=== PATIENT | female | born 1990 ===

== ENCOUNTER 2017-08-26 13:41 | Emergency (ER) | payer SELFPAY ==
[2017-08-26 13:47] VITALS: BP 107/54
--- NOTE | 2017-08-26 14:28 | Emergency Department Report ---
ED ENT HPI - General Chief complaint: Earache Stated complaint: EAR ACHE Time Seen by Provider: 08/26/17 14:22 Source: patient Mode of arrival: Ambulatory Limitations: No Limitations - History of Present Illness MD complaint: ear pain -: Gradual, days(s) Location: R ear Quality: burning Consistency: intermittent Context- Ear: recent swimming Associated Symptoms: discharge from ear. denies: fever, cough, gum swelling, toothache, pain with swallowing, sore throat, tinnitus, hearing loss, rhinorrhea - Related Data Previous Rx's Medication Instructions Recorded Last Taken Type Ofloxacin 0.3% [Floxin] 5 ml OT QID 7 Days #1 bottle 08/26/17 Unknown Rx Allergies Allergy/AdvReac Type Severity Reaction Status Date / Time latex Allergy Hives Verified 08/26/17 13:45 sulfamethoxazole Allergy Hives Verified 08/26/17 13:45 [From Bactrim] trimethoprim [From Bactrim] Allergy Hives Verified 08/26/17 13:45 ED Dental HPI - General Chief complaint: Earache Stated complaint: EAR ACHE Time Seen by Provider: 08/26/17 14:22 Source: patient Mode of arrival: Ambulatory Limitations: No Limitations - Related Data Previous Rx's Medication Instructions Recorded Last Taken Type Ofloxacin 0.3% [Floxin] 5 ml OT QID 7 Days #1 bottle 08/26/17 Unknown Rx Allergies Allergy/AdvReac Type Severity Reaction Status Date / Time latex Allergy Hives Verified 08/26/17 13:45 sulfamethoxazole Allergy Hives Verified 08/26/17 13:45 [From Bactrim] trimethoprim [From Bactrim] Allergy Hives Verified 08/26/17 13:45 ED Review of Systems ROS: Stated complaint: EAR ACHE Other details as noted in HPI Comment: All other systems reviewed and negative Constitutional: denies: diaphoresis, fever, malaise Eyes: denies: eye discharge, vision change ENT: ear pain. denies: throat pain, dental pain, hearing loss, epistaxis Respiratory: denies: cough, orthopnea, shortness of breath, SOB with exertion, SOB at rest, stridor Cardiovascular: denies: chest pain, palpitations, dyspnea on exertion, orthopnea , edema, syncope Gastrointestinal: denies: abdominal pain, nausea, vomiting, diarrhea, constipation, hematemesis, melena, hematochezia Genitourinary: denies: urgency, dysuria, frequency, hematuria, discharge Neurological: denies: headache, weakness, numbness, paresthesias, confusion, abnormal gait, vertigo ED Past Medical Hx - Past Medical History Previous Medical History?: No - Surgical History Additional Surgical History: tib/fib repair - Social History Smoking Status: Current Some Day Smoker Substance Use Type: None - Medications Home Medications: Home Medications Medication Instructions Recorded Confirmed Last Taken Type Ofloxacin 0.3% [Floxin] 5 ml OT QID 7 Days #1 bottle 08/26/17 Unknown Rx ED Physical Exam - General Limitations: No Limitations General appearance: alert, in no apparent distress, other (nontoxic) - Head Head exam: Present: atraumatic, normocephalic - Eye Eye exam: Present: PERRL, EOMI - ENT ENT exam: Present: TM's normal bilaterally, other (no mastoid tenderness, TM negative bilaterally, discharge in the right ear with auricular tenderness to tugging, amount of cerumen buildup) - Neck Neck exam: Present: normal inspection. Absent: tenderness, meningismus - Respiratory Respiratory exam: Present: normal lung sounds bilaterally. Absent: respiratory distress, wheezes, rales, rhonchi, stridor ED Course Vital Signs 08/26/17 13:45 Temperature 98.6 F Pulse Rate 90 Respiratory 16 Rate Blood Pressure 107/54 O2 Sat by Pulse 100 Oximetry ED Medical Decision Making - Medical Decision Making Symptoms consistent with otitis externa patient will be placed on drops, no evidence of perforation, she is nontoxic with no hearing problems stable for outpatient follow-up no vertigo or tinnitus Critical care attestation.: If time is entered above; I have spent that time in minutes in the direct care of this critically ill patient, excluding procedure time. ED Disposition Clinical Impression: Otitis externa Disposition: DC-01 TO HOME OR SELFCARE Is pt being admited?: No Condition: Stable Instructions: Otitis Externa (ED) Additional Instructions: See the doctor listed return if new or alarming symptoms Prescriptions: Ofloxacin 0.3% [Floxin] 5 ml OT QID 7 Days #1 bottle Referrals: ALEXY ZAMBRANO MD [Staff Physician] - 3-5 Days Time of Disposition: 14:26
== END 2017-08-26 14:47 | disposition home or self-care (01) ==
LOC: ED 13:41
DX: H60.91 Unspecified otitis externa, right ear (principal); F17.200 Nicotine dependence, unspecified, uncomplicated; Z91.040 Latex allergy status; Z88.2 Allergy status to sulfonamides
CPT/HCPCS: 99281